=== PATIENT | male | born 1980 | race Caucasian/White ===

== ENCOUNTER 2017-10-07 11:33 | Emergency (ER) | payer SELFPAY ==
[2017-10-07 11:38] VITALS: TEMP 98.7; BMI 27.3
--- NOTE | 2017-10-07 12:08 | PDOC ---
History of Present Illness - General Chief Complaint: Pain Stated Complaint: TESTICLE PAIN Time Seen by Provider: 10/07/17 11:41 - History of Present Illness Initial Comments: 10/07/17 12:06 37 yo M with no significant pmh who p/w R sided testicular pain. Patient reports acute onset R testicular pain and swelling Friday ( 10-04-17). Pain worse with touch. Also reports intermittent dysuria x 1 month, and yellow tinged semen. Denies inguinal bulging with valsalva or cough. Denies F/C, N/V, CP, SOB, abdominal pain, diarrhea, constipation, BPR, urinary hesitancy/incontinence, flank pain, hematuria, penile lesions/skin change, scrotal skin change, perianal pain, weakness, lightheadedness, sensory changes. Denies testicular trauma. PMHx: as noted above. No PMD. Surgery: H/o appendicitis. ROS: as noted above SHx: Patient sexually active with one female partner. Intermittent condom use. Denies h/o STIs. Denies h/o tobacco, IVDA, or EtoH Allergies: NKDA Past History - Past Medical History Allergies/Adverse Reactions: Allergies Allergy/AdvReac Type Severity Reaction Status Date / Time No Known Allergies Allergy Verified 10/07/17 11:34 COPD: No - Surgical History Appendectomy: Yes - Suicide/Smoking/Psychosocial Hx Smoking History: Never smoked Have you smoked in the past 12 months: No Information on smoking cessation initiated: No Hx Alcohol Use: No Drug/Substance Use Hx: No Substance Use Type: None Review of Systems - Review of Systems Comments:: 10/07/17 12:05 GENERAL/CONSTITUTIONAL: No fever or chills. No weakness. HEAD, EYES, EARS, NOSE AND THROAT: No change in vision. No ear pain or discharge. No sore throat. CARDIOVASCULAR: No chest pain or shortness of breath RESPIRATORY: No cough, wheezing, or hemoptysis. GASTROINTESTINAL: No nausea, vomiting, diarrhea or constipation. GENITOURINARY: + R testicular swelling and pain. + dysuria. No frequency, or change in urination. MUSCULOSKELETAL: No joint or muscle swelling or pain. No neck or back pain. SKIN: No rash NEUROLOGIC: No headache, vertigo, loss of consciousness, or change in strength/ sensation. ENDOCRINE: No increased thirst. No abnormal weight change HEMATOLOGIC/LYMPHATIC: No anemia, easy bleeding, or history of blood clots. ALLERGIC/IMMUNOLOGIC: No hives or skin allergy. *Physical Exam - Vital Signs Last Vital Signs Temp Pulse Resp BP Pulse Ox 98.7 F 85 18 137/85 100 10/07/17 11:34 10/07/17 11:34 10/07/17 11:34 10/07/17 11:34 10/07/17 11:34 - Physical Exam Comments: 10/07/17 12:06 GENERAL: Awake, alert, and fully oriented, in no acute distress HEAD: No signs of trauma, normocephalic, atraumatic EYES: PERRLA, EOMI, sclera anicteric, conjunctiva clear ENT: Hearing grossly normal, nares patent, oropharynx clear without exudates. Moist mucosa NECK: Normal ROM, supple, no lymphadenopathy, JVD, or masses LUNGS: No distress, speaks full sentences, clear to auscultation bilaterally HEART: Regular rate and rhythm, normal S1 and S2, no murmurs, rubs or gallops, peripheral pulses normal and equal bilaterally. ABDOMEN: Soft, nontender, normoactive bowel sounds. No guarding, no rebound. No masses : Diffuse right testicular ttp. + epidydmal ttp. Normal testicular lie.Absent urethral d/c. Patient uncircumcised. Absent penile lesions or vesicles, inguinal lymphadenoapthy, or mass. EXTREMITIES : Normal inspection, Normal range of motion, no edema. No clubbing or cyanosis. SKIN: Warm, Dry, normal turgor, no rashes or lesions noted Moderate Sedation - Procedure Monitoring Vital Signs: Vital Signs Temp Pulse Resp BP Pulse Ox 98.7 F 85 18 137/85 100 10/07/17 11:34 10/07/17 11:34 10/07/17 11:34 10/07/17 11:34 10/07/17 11:34 Medical Decision Making - Medical Decision Making 10/07/17 12:41 37 yo M with no significant pmh who p/w R sided testicular pain x 5 days. VSS, AF. + R epidydmal and diffuse testicular ttp. Patient sexually active. R/o testicular torsion, testicular appendage torsion. Possible epidydimitis vs. urethritis. Will consider varicocele, hydrocele. Low suspicion of nephrolithiaisis, cystitis. ED Course: UA, GC AMP Testicular U/S 10/07/17 15:30 Testicular U/S: Small Right sided hydrocele. No evidence of torsion. 10/07/17 15:32 Patient stable and ready for d/c with return precautions. Advsied to f/u with . 10/07/17 15:39 Treated PPX G/C with 1 GM Ceftriaxone and PO Azithromycin *DC/Admit/Observation/Transfer Diagnosis at time of Disposition: Testicular pain - Referrals Referrals: Shemar Acevedo MD [Staff Physician] - - Patient Instructions Printed Discharge Instructions: DI for Testicular Pain, DI for Hydrocele-Adult Additional Instructions: Please return to the emergency department with any new or worsening symptoms or concerns. Please follow up with your primary care physician within 72 hours. - Post Discharge Activity - Attestations Physician Attestion: 10/07/17 12:07 I attest to the information provided in this note.
--- NOTE | 2017-10-07 12:39 | PDOC ---
Attending Attestation - Resident Resident Name: Alexey Cisneros - ED Attending Attestation I have performed the following: I have examined & evaluated the patient, The case was reviewed & discussed with the resident, I agree w/resident's findings & plan, Exceptions are as noted - HPI HPI: 10/07/17 12:34 37y M no pmhx presents with complaint R testicular pain x 3 days, started gradually and mild swellign at night, the pain is constant, and he endorses some dysuria x 1 month and 1 week of yellow tingued semen, no discharge, hematuria, fever/chills, nausea/vomiting, abdominal pain, flank pain. Pain is constant approx 7/10 and doesnt seem to wax and wane. +sexually active with one partner, but states he has some other partners but states he uses condoms consistently with alterantive partners on exam: abdmen: soft nontender, no cva tenderness, no rebound/guarding, no hernias : normal lie, no swelling/edema, non edemadous, diffuse testicular tenderness , uncircumcsed, no discharge or lesions, ddx: uti, orchitis, epididimidis, torsion will ck UA, cultures US to r/o tosion - Physicial Exam PE: 10/09/17 18:46 see above - Medical Decision Making 10/07/17 15:38 pts ua reviewed US reviewed, noted for hydroceoel without signs of epididmydis or orchitis no sigsn of torsion due to pts sexual history will treat for STD w/ ctx a/zithromycin will have pt fu with pmd
[2017-10-07 13:17] LABS: URINE APPEARANCE CLEAR; URINE BILIRUBIN NEGATIVE (<2.0 mg/dL); URINE COLOR LTYELLOW; URINE GLUCOSE (UA) NEGATIVE (NEGATIVE); URINE KETONE NEGATIVE (NEGATIVE); URINE LEUK ESTERASE NEGATIVE (NEGATIVE); URINE NITRITE NEGATIVE (NEGATIVE); URINE PROTEIN NEGATIVE (NEGATIVE); URINE UROBILINOGEN NEGATIVE mg/dL (0.2-1.0)
[2017-10-07 13:34] LABS: URINE BACTERIA RARE /hpf (NONE SEEN)
[2017-10-07] MEDS ORDERED: AZITHROMYCIN 1 GM PACKET PO ONE (15:38)
[2017-10-07] MEDS ORDERED: cefTRIAXone SODIUM 1 GM VIAL ONE ×2 (15:52→16:00)
[2017-10-07] MEDS ORDERED: AZITHROMYCIN 250 MG TABLET ONE (15:52)
[2017-10-07] MEDS ORDERED: LIDOCAINE HCL 1%, 10 MG/ML (20ML VIAL) ONE (15:54)
[2017-10-07 16:47] VITALS: BP 128/65; PULSE 81
--- NOTE | 2017-10-10 15:21 | PDOC ---
Patient Follow-up (Call Back) - Post ED Follow - Up Condition at time of discharge: Stable Disposition at time of original discharge: HOME Reason for Call Back: Abnwl. Microbiology Signs/Symptoms Improved: No - Disposition Rx Needed: No Additional Instructions/Notes: +chlamydia on cultures pt was already treated. i was able to reach the pt through [phone], discussed with him importance of letting all of his sexual partners know so they can be appropriately treated.pt verbalized understanding
== END 2017-10-07 16:40 | disposition home or self-care (01) ==
LOC: JER 11:33
DX: N50.811 Right testicular pain (principal)
CPT/HCPCS: 36415; 76870-TC; 81003; 81015; 87086; 87491; 87591; 99282-25

== ENCOUNTER 2020-08-30 10:40 | Emergency (ER) | payer OTHER ==
[2020-08-30 10:49] VITALS: BP 143/71; PULSE 88; TEMP 98.3; BMI 29.5
[2020-08-30] MEDS ORDERED: LIDOCAINE 5% TOPICAL PATCH TP ONE (11:30)
[2020-08-30] MEDS ORDERED: KETOROLAC TROMETHAMINE 60 MG/2 ML VIAL IM ONE (11:30)
[2020-08-30] MEDS ORDERED: METHOCARBAMOL 500 MG TABLET PO ONE (11:31)
[2020-08-30] MEDS ORDERED: METHOCARBAMOL 500 MG TABLET ONE ×2 (12:05→12:17)
[2020-08-30] MEDS ORDERED: KETOROLAC TROMETHAMINE 30 MG/1 ML VIAL ONE ×2 (12:05→12:17)
[2020-08-30] MEDS ORDERED: LIDOCAINE 5% TOPICAL PATCH ONE ×2 (12:05→12:17)
== END 2020-08-30 12:57 | disposition home or self-care (01) ==
LOC: JER 10:40
PROC: 3E0233Z Introduction of Anti-inflammatory into Muscle, Percutaneous Approach (ICD-10-PCS; principal; 2020-08-30)
DX: M54.5 Low back pain (principal); M25.511 Pain in right shoulder
CPT/HCPCS: 72100-TC-FY; 73030-TC-RT-FY; 99284-25